=== PATIENT | female | born 1985 | race African-American/Black ===

== ENCOUNTER 2016-08-09 11:55 | Outpatient (CLI) | payer OTHER ==
[2016-08-11 20:25] LABS: Chlamydia by PCR Not Detected (NotDetected); GC by PCR Not Detected (NotDetected)
== END 2016-08-09 11:56 | disposition home or self-care (01) ==
LOC: MADLABBHPM 11:55
PROVIDERS: ATTEND Family Medicine
DX: R30.0 Dysuria (principal)
CPT/HCPCS: 36415; 87480; 87491; 87510; 87591; 87660

== ENCOUNTER 2016-09-20 15:33 | Emergency (ER) | payer MEDICAID, OTHER ==
[2016-09-20] MEDS ORDERED: Ibuprofen 800 MG TAB ONE (16:07)
== END 2016-09-20 17:16 | disposition home or self-care (01) ==
LOC: MADERS 15:33
DX: J11.1 Influenza due to unidentified influenza virus with other respiratory manifestations (principal); F90.9 Attention-deficit hyperactivity disorder, unspecified type; F20.9 Schizophrenia, unspecified; F32.9 Major depressive disorder, single episode, unspecified; Z79.899 Other long term (current) drug therapy
CPT/HCPCS: 99283

== ENCOUNTER 2016-11-30 17:06 | Emergency (ER) | payer OTHER ==
[2016-11-30 17:35] LABS: Pregnancy Test - Urine (BHCG) NEGATIVE (NEGATIVE); Pregu Control Bar Appear? YES (CONTROL BAR); Specific Gravity 1.025 (1.002-1.036)
[2016-11-30 17:38] LABS: Glucose, Urine (Dipstick) Negative (Negative); Leukocyte Negative (Negative); Nitrite Negative (Negative); Protein, Urine (Dipstick) Negative (Neg-Trace); Specific Gravity, Urine 1.025 (1.005-1.030)
[2016-11-30 17:39] LABS: Bilirubin Negative (Negative); Blood, Urine Negative (Negative); Clarity Hazy (Clear); Urobilinogen 0.2 mg/dL (0.2-1.0)
[2016-11-30 17:43] LABS: Bacteria/HPF 1+ HPF (None Seen); RBC/HPF 0-3 HPF (0-3); WBC/HPF 0-3 HPF (0-3)
[2016-11-30] MEDS ORDERED: Ondansetron ODT 4 MG TAB ONE (18:08)
[2016-11-30] MEDS ORDERED: Naproxen 500 MG TAB ONE (18:08)
== END 2016-11-30 18:13 | disposition home or self-care (01) ==
LOC: MADERS 17:06
DX: B34.9 Viral infection, unspecified (principal); F32.9 Major depressive disorder, single episode, unspecified; F90.9 Attention-deficit hyperactivity disorder, unspecified type; F20.9 Schizophrenia, unspecified
CPT/HCPCS: 81001; 81025; 87086; 99284; Q0162

== ENCOUNTER 2018-02-21 10:29 | Emergency (ER) | payer OTHER ==
[2018-02-21] MEDS ORDERED: HYDROmorphone 0.5 MG/0.5 ML SYRINGE ONE ×2 (11:07→11:39)
[2018-02-21] MEDS ORDERED: Amoxicillin/Potassium Clav 875 MG TAB ONE (12:41)
[2018-02-21] MEDS ORDERED: Adacel (T-DAP) 0.5 ML VIAL ONE (12:41)
== END 2018-02-21 13:15 | disposition home or self-care (01) ==
LOC: MADERS 10:29
DX: S81.852A Open bite, left lower leg, initial encounter (principal); F20.9 Schizophrenia, unspecified; F32.9 Major depressive disorder, single episode, unspecified; F90.9 Attention-deficit hyperactivity disorder, unspecified type; Z79.899 Other long term (current) drug therapy; Z23 Encounter for immunization; W54.0XXA Bitten by dog, initial encounter
CPT/HCPCS: 90471; 90715; 96374; J1170

== ENCOUNTER 2018-08-26 08:55 | Emergency (ER) | payer OTHER | END 2018-08-26 10:59 | disposition home or self-care (01) | LOC: MADERS 08:55 | DX: J10.1 Influenza due to other identified influenza virus with other respiratory manifestations (principal); F32.9 Major depressive disorder, single episode, unspecified; F20.9 Schizophrenia, unspecified; F90.9 Attention-deficit hyperactivity disorder, unspecified type; F41.0 Panic disorder [episodic paroxysmal anxiety]; Z79.899 Other long term (current) drug therapy | CPT/HCPCS: 99283 ==

== ENCOUNTER 2018-09-17 12:26 | Outpatient (CLI) | payer OTHER ==
--- NOTE | 2018-09-17 13:56 | RAD ---
CHEST TWO VIEWS: HISTORY: Chest tightness. Shortness of breath. COMPARISON: Not available. TECHNIQUE: Two views of the chest are obtained. FINDINGS: PA and lateral views of the chest demonstrate the lungs to be well aerated. No evidence of active in trathoracic disease is seen. No evidence of effusions, pneumonia, or pneumothorax is seen. IMPRESSION: Unremarkable two views chest. POS: H
== END 2018-09-17 12:27 | disposition home or self-care (01) ==
LOC: MADRAD 12:26
PROVIDERS: ATTEND Family Medicine
DX: R07.89 Other chest pain (principal); R06.02 Shortness of breath
CPT/HCPCS: 71046; 93005; 93010

== ENCOUNTER 2019-09-25 08:56 | Emergency (ER) | payer OTHER ==
[2019-09-25] MEDS ORDERED: Ondansetron PF 4 MG/2 ML Vial ONE (09:34)
[2019-09-25] MEDS ORDERED: Sodium Chloride 0.9% 1,000 ML ONE (09:34)
[2019-09-25 10:02] LABS: #Basophils 0.1 thou/uL (0.0-0.2); #Eosinphils 0.1 thou/uL (0.0-0.7); #Lymphocytes 2.8 thou/uL (1.20-3.40); #Monocytes 0.5 thou/uL (0.11-0.59); #Neutrophils 7.4 thou/uL (1.40-6.50); %Basophils 0.9 % (0.0-1.0); %Eosinophils 0.7 % (0.0-10.0); %Lymphocytes 25.3 % (21.0-51.0); %Monocytes 4.8 % (0.0-10.0); %Neutrophils 68.4 % (42.0-75.0); Hemoglobin 11.4 g/dL (12.0-16.0); Mean Corpuscular HGB CONC 32.4 g/dL (32.0-36.0); Mean Corpuscular Hemoglobin 28.5 pg (27.0-31.0); Mean Corpuscular Volume 87.9 fL (78.0-98.0); Mean Platelet Volume 8.4 fL (7.4-10.4); Platelet Count 251 thou/uL (130-400); RBC Distribution Width 11.8 % (11.5-14.5); Red Blood Cell (RBC) Count 4.01 mill/uL (4.20-5.40); White Blood Cell (WBC) Count 10.9 thou/uL (4.8-10.8)
[2019-09-25 10:08] LABS: ALT (SGPT) 15 U/L (8-55); AST (SGOT) 14 U/L (5-34); Albumin 3.9 g/dL (3.5-5.0); Alkaline Phosphatase 56 U/L (40-110); Anion Gap 13 mmol/L (10-20); BUN (Urea Nitrogen) 15 mg/dL (7.0-18.7); Bilirubin, Total 0.4 mg/dL (0.2-1.2); Calc. Creatinine Clearance 0 mL/min (70-130); Calcium 8.6 mg/dL (7.8-10.44); Carbon Dioxide 23 mmol/L (22-29); Chloride 107 mmol/L (98-107); Estimated GFR-MDRD Greater than 90; Glucose 82 mg/dL (70-105); Lipase 10 U/L (8-78); Potassium 4.3 mmol/L (3.5-5.1); Protein, Total 6.9 g/dL (6.0-8.3); Sodium 139 mmol/L (136-145)
[2019-09-25 10:09] LABS: Bilirubin Negative (Negative); Blood, Urine Negative (Negative); Clarity Clear (Clear); Glucose, Urine (Dipstick) Negative (Negative); Leukocyte Negative (Negative); Nitrite Negative (Negative); Protein, Urine (Dipstick) Negative (Neg-Trace); Urobilinogen 0.2 mg/dL (Less than 2)
[2019-09-25 10:10] LABS: Pregnancy Test - Urine (BHCG) Negative (Negative); Pregu Control Background? CLEAR/WHITE (CLR/WHITE); Pregu Control Bar Appear? YES (CONTROL BAR)
== END 2019-09-25 10:50 | disposition home or self-care (01) ==
LOC: MADERS 08:56
DX: A08.4 Viral intestinal infection, unspecified (principal); F32.9 Major depressive disorder, single episode, unspecified; F90.9 Attention-deficit hyperactivity disorder, unspecified type; F20.9 Schizophrenia, unspecified; Z79.899 Other long term (current) drug therapy
CPT/HCPCS: 80053; 81003; 81025; 83690; 85025; 96361; 96374; J2405; J7050

== ENCOUNTER 2020-03-20 20:39 | Emergency (ER) | payer OTHER ==
[2020-03-20] MEDS ORDERED: predniSONE 20 MG TAB ONE (21:17)
== END 2020-03-20 21:30 | disposition home or self-care (01) ==
LOC: MADERS 20:39
DX: J02.9 Acute pharyngitis, unspecified (principal); R05 Cough; R09.81 Nasal congestion; R51 Headache; R06.2 Wheezing; Z20.828 Contact with and (suspected) exposure to other viral communicable diseases; F32.9 Major depressive disorder, single episode, unspecified; F90.9 Attention-deficit hyperactivity disorder, unspecified type; F20.9 Schizophrenia, unspecified; F41.0 Panic disorder [episodic paroxysmal anxiety]; Z79.899 Other long term (current) drug therapy
CPT/HCPCS: 99283; J7512

== ENCOUNTER 2020-04-15 11:24 | Emergency (ER) | payer OTHER ==
--- NOTE | 2020-04-15 12:07 | CT ---
CT BRAIN WITHOUT CONTRAST: HISTORY: Right-sided numbness FINDINGS: There is a focal hypodensity in the region of the left nahed/superior cerebellar peduncle. It cannot b e said with certainty if this represents a artifact, infarct or mass. No evidence of acute hemorrhage, midline shift or abnormal extra-axial fluid collections is seen. The ventricular size is appropriate and the basilar cisterns are patent. The bony calvarium is intact. The visualized paranasal sinuses and mastoid air cells are well aerated. IMPRESSION: Left-sided focal density should be evaluated with MRI (with and without IV contrast).
[2020-04-15 12:30] LABS: #Lymphocytes 1.8 thou/uL (1.20-3.40); #Monocytes 0.3 thou/uL (0.11-0.59); %Basophils 0.5 % (0.0-1.0); %Eosinophils 0.7 % (0.0-10.0); %Lymphocytes 24.8 % (21.0-51.0); %Monocytes 3.7 % (0.0-10.0); %Neutrophils 70.4 % (42.0-75.0); Hemoglobin 11.3 g/dL (12.0-16.0); Mean Corpuscular HGB CONC 32.3 g/dL (32.0-36.0); Mean Corpuscular Hemoglobin 27.6 pg (27.0-31.0); Mean Corpuscular Volume 85.4 fL (78.0-98.0); Mean Platelet Volume 7.7 fL (7.4-10.4); Platelet Count 311 thou/uL (130-400); RBC Distribution Width 11.9 % (11.5-14.5); Red Blood Cell (RBC) Count 4.11 mill/uL (4.20-5.40); White Blood Cell (WBC) Count 7.1 thou/uL (4.8-10.8)
[2020-04-15] MEDS ORDERED: Aspirin Chewable 81 MG TAB ONE (12:35)
[2020-04-15 12:37] LABS: INR-International Normal Ratio 1.1; PTT 29.3 sec (22.9-36.1); Prothrombin Time 14.1 sec (12.0-14.7)
[2020-04-15 12:48] LABS: ALT (SGPT) 11 U/L (8-55); AST (SGOT) 12 U/L (5-34); Albumin 4.1 g/dL (3.5-5.0); Alkaline Phosphatase 62 U/L (40-110); Anion Gap 13 mmol/L (10-20); BUN (Urea Nitrogen) 11 mg/dL (7.0-18.7); Bilirubin, Total 0.4 mg/dL (0.2-1.2); Calc. Creatinine Clearance 0 mL/min (70-130); Calcium 8.8 mg/dL (7.8-10.44); Carbon Dioxide 23 mmol/L (22-29); Chloride 108 mmol/L (98-107); Estimated GFR-MDRD Greater than 90; Globulin 3.2 g/dL (2.4-3.5); Glucose 83 mg/dL (70-105); Potassium 3.4 mmol/L (3.5-5.1); Protein, Total 7.3 g/dL (6.0-8.3); Sodium 141 mmol/L (136-145)
== END 2020-04-15 13:10 | disposition short-term general hospital (02) ==
LOC: MADERS 11:24
DX: R20.0 Anesthesia of skin (principal); J45.909 Unspecified asthma, uncomplicated; G89.29 Other chronic pain; F32.9 Major depressive disorder, single episode, unspecified; F20.9 Schizophrenia, unspecified; F90.9 Attention-deficit hyperactivity disorder, unspecified type; F41.0 Panic disorder [episodic paroxysmal anxiety]; Z79.899 Other long term (current) drug therapy
CPT/HCPCS: 36416; 70450; 80053; 84484; 85025; 85610; 85730; 93005; 36415-59

== ENCOUNTER 2022-03-17 16:25 | Emergency (ER) | payer OTHER ==
[2022-03-17 17:10] LABS: #Lymphocytes 1.2 thou/uL (1.20-3.40); #Monocytes 0.2 thou/uL (0.11-0.59); #Neutrophils 1.3 thou/uL (1.40-6.50); %Basophils 1.3 % (0.0-1.0); %Eosinophils 1.2 % (0.0-10.0); %Lymphocytes 43.8 % (21.0-51.0); %Monocytes 6.3 % (0.0-10.0); %Neutrophils 47.4 % (42.0-75.0); Hemoglobin 11.6 g/dL (12.0-16.0); Mean Corpuscular HGB CONC 31.6 g/dL (32.0-36.0); Mean Corpuscular Hemoglobin 27.9 pg (27.0-31.0); Mean Corpuscular Volume 88.3 fL (78.0-98.0); Mean Platelet Volume 9.5 fL (7.4-10.4); Platelet Count 227 thou/uL (130-400); RBC Distribution Width 11.6 % (11.5-14.5); Red Blood Cell (RBC) Count 4.16 mill/uL (4.20-5.40); White Blood Cell (WBC) Count 2.8 thou/uL (4.8-10.8)
[2022-03-17 17:23] LABS: ALT (SGPT) 12 U/L (8-55); AST (SGOT) 11 U/L (5-34); Albumin 4.5 g/dL (3.5-5.0); Alkaline Phosphatase 59 U/L (40-110); Anion Gap 13 mmol/L (10-20); BUN (Urea Nitrogen) 16 mg/dL (7.0-18.7); Bilirubin, Total 0.5 mg/dL (0.2-1.2); Calc. Creatinine Clearance 0 mL/min (70-130); Calcium 9.3 mg/dL (7.8-10.44); Carbon Dioxide 24 mmol/L (22-29); Chloride 107 mmol/L (98-107); Estimated GFR 101; Globulin 3.2 g/dL (2.4-3.5); Glucose 85 mg/dL (70-105); Potassium 3.6 mmol/L (3.5-5.1); Protein, Total 7.7 g/dL (6.0-8.3); Sodium 140 mmol/L (136-145)
== END 2022-03-17 18:07 | disposition home or self-care (01) ==
LOC: MADERS 16:25
DX: T39.391A Poisoning by other nonsteroidal anti-inflammatory drugs [NSAID], accidental (unintentional), initial encounter (principal); R53.81 Other malaise; R51.9 Headache, unspecified; G40.409 Other generalized epilepsy and epileptic syndromes, not intractable, without status epilepticus; G35 Multiple sclerosis; J45.909 Unspecified asthma, uncomplicated; Z79.82 Long term (current) use of aspirin; Z79.899 Other long term (current) drug therapy
CPT/HCPCS: 36415; 80053; 85025; 99284

== ENCOUNTER 2022-06-08 09:26 | Emergency (ER) | payer OTHER | END 2022-06-08 11:02 | disposition home or self-care (01) | LOC: MADERS 09:26 | DX: J10.1 Influenza due to other identified influenza virus with other respiratory manifestations (principal) | CPT/HCPCS: 87804; 99283 ==

== ENCOUNTER 2023-08-29 08:05 | Emergency (ER) | payer OTHER ==
[2023-08-29 09:12] LABS: Pregnancy Test - Urine (BHCG) Negative (Negative)
[2023-08-29 09:13] LABS: Pregu Control Background? CLEAR/WHITE (CLR/WHITE); Pregu Control Bar Appear? YES (CONTROL BAR); Specific Gravity 1.026 (1.002-1.036)
[2023-08-29] MEDS ORDERED: predniSONE 20 MG TAB ONE (09:19)
== END 2023-08-29 09:58 | disposition home or self-care (01) ==
LOC: MADERS 08:05
DX: J45.909 Unspecified asthma, uncomplicated (principal)
CPT/HCPCS: 81025; 87081; 87430; 87635; 87804; 99284; J7512

== ENCOUNTER 2024-01-30 10:43 | Emergency (ER) | payer OTHER | END 2024-01-30 12:43 | disposition home or self-care (01) | LOC: MADERS 10:43 | DX: R21 Rash and other nonspecific skin eruption (principal); J45.909 Unspecified asthma, uncomplicated; Z79.51 Long term (current) use of inhaled steroids | CPT/HCPCS: 99282 ==

== ENCOUNTER 2024-01-31 09:25 | Outpatient (CLI) | payer OTHER | END 2024-01-31 09:26 | disposition home or self-care (01) | LOC: MADRAD 09:25 | PROVIDERS: ATTEND Family Medicine | DX: M54.50 Low back pain, unspecified (principal); M25.561 Pain in right knee; M25.551 Pain in right hip | CPT/HCPCS: 72100 ==

== ENCOUNTER 2025-03-03 20:45 | Emergency (ER) | payer MEDICAID, OTHER ==
[2025-03-03] MEDS ORDERED: Acetaminophen 500 MG TAB ONE (21:23)
== END 2025-03-03 21:48 | disposition home or self-care (01) ==
LOC: MADERS 20:45
DX: K02.9 Dental caries, unspecified (principal); I05.0 Rheumatic mitral stenosis; F90.9 Attention-deficit hyperactivity disorder, unspecified type; F32.A Depression, unspecified; F41.9 Anxiety disorder, unspecified; F20.9 Schizophrenia, unspecified; M54.9 Dorsalgia, unspecified; G43.909 Migraine, unspecified, not intractable, without status migrainosus
CPT/HCPCS: 99282

== ENCOUNTER 2025-05-08 20:17 | Emergency (ER) | payer MEDICAID, OTHER ==
[2025-05-08] MEDS ORDERED: Ibuprofen 800 MG TAB ONE (21:04)
== END 2025-05-08 21:19 | disposition home or self-care (01) ==
LOC: MADERS 20:17
DX: K08.89 Other specified disorders of teeth and supporting structures (principal); K02.9 Dental caries, unspecified; J45.909 Unspecified asthma, uncomplicated; Z79.51 Long term (current) use of inhaled steroids
CPT/HCPCS: 99282

== ENCOUNTER 2025-05-12 12:10 | Outpatient (CLI) | payer MEDICAID ==
[2025-05-12 12:48] LABS: ALT (SGPT) 12 U/L (Less than 34); AST (SGOT) 15 U/L (11-34); Albumin 4.4 g/dL (3.1-4.5); Alkaline Phosphatase 66 U/L (40-110); Anion Gap 14 mmol/L (10-20); BUN (Urea Nitrogen) 10 mg/dL (7.0-18.7); Bilirubin, Total 0.6 mg/dL (0.3-1.2); Calc. Creatinine Clearance 0 mL/min (70-130); Calcium 8.8 mg/dL (7.8-10.44); Carbon Dioxide 18 mmol/L (22-29); Chloride 110 mmol/L (98-107); Globulin 3.6 g/dL (2.4-3.5); Glucose 82 mg/dL (70-105); Potassium 4.0 mmol/L (3.5-5.1); Sodium 138 mmol/L (136-145)
[2025-05-12 13:35] LABS: Hematocrit 40.7 % (36.0-47.0); Hemoglobin 12.9 g/dL (12.0-16.0); MDiff Complete? YES; Mean Corpuscular Hemoglobin 28.3 pg (27.0-31.0); Mean Corpuscular Volume 89.2 fl (78.0-98.0); Platelet Adequacy Comment Appears Adequate; Platelet Count 331 10x3/uL (130-400); Red Blood Cell (RBC) Count 4.56 mill/uL (4.20-5.40); White Blood Cell (WBC) Count 6.9 10x3/uL (4.8-10.8)
[2025-05-12 16:09] LABS: Reference Lab Name LABCORP
[2025-05-12 17:52] LABS: Hep B Surf Ag NONREACTIVE S/CO (NonReactive)
[2025-05-12 18:27] LABS: Vitamin B12 557 pg/mL (211-911)
== END 2025-05-12 12:11 | disposition home or self-care (01) ==
LOC: MADLAB 12:10
PROVIDERS: ATTEND Psychiatry & Neurology Neurology
DX: G40.909 Epilepsy, unspecified, not intractable, without status epilepticus (principal); G35.D Multiple sclerosis, unspecified
CPT/HCPCS: 36415; 80053; 82607; 84443; 85025; 86480; 87340

== ENCOUNTER 2025-05-29 10:35 | Emergency (ER) | payer MEDICAID ==
[2025-05-29] MEDS ORDERED: Ibuprofen 800 MG TAB ONE (11:34)
== END 2025-05-29 11:56 | disposition home or self-care (01) ==
LOC: MADERS 10:35
DX: M79.10 Myalgia, unspecified site (principal); M72.2 Plantar fascial fibromatosis
CPT/HCPCS: 99283

== ENCOUNTER 2025-06-01 11:19 | Emergency (ER) | payer MEDICAID ==
[2025-06-01 12:11] LABS: Glucose, Urine (Dipstick) Negative (Negative); Leukocyte Negative (Negative); Protein, Urine (Dipstick) Negative (Neg-Trace); Specific Gravity, Urine 1.020 (1.005-1.030)
[2025-06-01 12:19] LABS: Cocaine Metabolite Screen Negative (Negative); THC/Cannabinoid Screen Negative (Negative); Tricyclic Screen Negative (Negative)
[2025-06-01 12:19] LABS: Pregnancy Test - Urine (BHCG) Negative (Negative); Pregu Control Background? CLEAR/WHITE (CLR/WHITE); Pregu Control Bar Appear? YES (CONTROL BAR)
[2025-06-01 12:20] LABS: Bacteria/HPF Rare-Few HPF (None Seen); CAUTI Indications for Culture Dysuria,urgency,freq; RBC/HPF 0-3 HPF (0-3); WBC/HPF 0-3 HPF (0-3)
[2025-06-01 12:22] LABS: Urine Culture Reflex No No
[2025-06-01 12:40] LABS: Hematocrit 37.6 % (36.0-47.0); Hemoglobin 11.5 g/dL (12.0-16.0); Mean Corpuscular Hemoglobin 28.5 pg (27.0-31.0); Mean Corpuscular Volume 93.3 fl (78.0-98.0); Platelet Count 240 10x3/uL (130-400); Red Blood Cell (RBC) Count 4.03 mill/uL (4.20-5.40); White Blood Cell (WBC) Count 5.9 10x3/uL (4.8-10.8)
[2025-06-01 12:44] LABS: MDiff Complete? YES; Manual Diff?? YES; Platelet Adequacy Comment Appears Adequate
[2025-06-01 12:49] LABS: Anion Gap 15 mmol/L (10-20); BUN (Urea Nitrogen) 10 mg/dL (7.0-18.7); Calc. Creatinine Clearance 0 mL/min (70-130); Calcium 8.6 mg/dL (7.8-10.44); Carbon Dioxide 21 mmol/L (22-29); Chloride 107 mmol/L (98-107); Glucose 88 mg/dL (70-105); Potassium 3.6 mmol/L (3.5-5.1); Sodium 139 mmol/L (136-145)
== END 2025-06-01 13:40 | disposition home or self-care (01) ==
LOC: MADERS 11:19
DX: R20.0 Anesthesia of skin (principal); R20.2 Paresthesia of skin; R29.701 NIHSS score 1; J45.909 Unspecified asthma, uncomplicated; Z79.51 Long term (current) use of inhaled steroids; Z79.82 Long term (current) use of aspirin; Z79.899 Other long term (current) drug therapy
CPT/HCPCS: 36415; 80048; 80306; 81001; 81025; 85025; 99284

== ENCOUNTER 2025-06-23 09:56 | Outpatient (CLI) | payer MEDICAID, SELFPAY ==
[2025-06-23 15:32] LABS: Reference Lab Name LABCORP
[2025-06-23 15:34] LABS: Reference Lab Name LABCORP
== END 2025-06-23 09:57 | disposition home or self-care (01) ==
LOC: MADLAB 09:56
PROVIDERS: ATTEND Psychiatry & Neurology Neurology
DX: G40.909 Epilepsy, unspecified, not intractable, without status epilepticus (principal); G35.D Multiple sclerosis, unspecified
CPT/HCPCS: 36415